=== PATIENT | male | born 1940 | race African-American/Black ===

== ENCOUNTER 2016-08-27 03:06 | Inpatient (IN) | payer MEDICARE ==
[~2016-08-27] VITALS: Ht 188 cm; Wt 60.8 kg
[~2016-08-27 03:06] MED LIST: ASPI-39 PO; FLUT16SP2 NS; HYDR15SO4 PO; LISI10TA2 PO; SILO8CAP PO; SIMV20TA3 PO
[2016-08-27] MEDS ORDERED: OXYMETAZOLINE 0.05% NASAL SPRAY 30ML BOTTLE. NS ONE (03:30)
[2016-08-27] MEDS ORDERED: IV NORMAL SALINE 500ML BAG 500 ML IV ONE ×3 (04:00→06:15)
[2016-08-27 04:21] LABS: BASO % 1 % (0-3); EOS % 0 % (0-3); HEMATOCRIT 44.7 % (39.0-53.0); HEMOGLOBIN 14.8 g/dL (13.0-17.5); LYMPH # 0.9 x10^3/uL (1.0-4.8); LYMPH % 26 % (24-48); MEAN CORPUSCULAR HEMOGLOBIN 32 pg (25-35); MEAN CORPUSCULAR HGB CONC 33 g/dL (31-37); MEAN CORPUSCULAR VOLUME 97 fL (79-100); MONO % 16 % (0-9); NEUT % 56 % (31-73); PLATELET COUNT 86 x10^3/uL (140-400); RED BLOOD COUNT 4.63 x10^6/uL (4.30-5.70); WHITE BLOOD COUNT 3.4 x10^3/uL (4.0-11.0)
[2016-08-27 04:31] LABS: INR 1.1 (0.8-1.1); PROTHROMBIN TIME PATIENT 13.8 SEC (11.7-14.0)
[2016-08-27 04:32] LABS: CREATININE 1.8 mg/dL (0.7-1.3); GFR 44.6; POTASSIUM 4.3 mmol/L (3.5-5.1)
[2016-08-27] MEDS ORDERED: CEPH-264 PO (05:03)
--- NOTE | 2016-08-27 05:04 | PHYS DOC ---
Past Medical History Past Medical History: High Cholesterol, Hypertension, Unknown Additional Past Medical Histor: poor historian Past Surgical History: Other Additional Past Surgical Histo: poor historian Alcohol Use: None Drug Use: None Adult General Chief Complaint Chief Complaint: NOSEBLEED HPI HPI 76-year-old male presenting to the emergency department today with nosebleed and watery stools over the past few days. The nosebleed is in the right near he reports dripping which has been intermittently controlled by pressure. He denies any pain. Onset 2-3 days. Location right Meza. Duration intermittent. No alleviating factors present. (nursing note states left nare, this is incorrect it is right nare). Review of systems is negative for chest pain abdominal pain nausea vomiting. Positive for watery stools. All other review of systems is negative unless otherwise noted in history of present illness. Review of Systems Review of Systems SEE ABOVE. Current Medications Current Medications Current Medications Medications (Trade) Dose Ordered Sig/Lucio Start Time Stop Time Status Last Admin Dose Admin Oxymetazoline HCl 2 spray 2 spray 1X ONCE 08/27/16 03:30 08/27/16 03:31 DC 08/27/16 04:12 2 SPRAY Sodium Chloride (Iv Sodium Chloride 0.9% 500ml Bag) 500 ml @ 500 mls/hr 1X ONCE 08/27/16 05:00 08/27/16 05:59 Allergies Allergies Allergies Coded Allergies Type Severity Reaction Last Updated Verified No Known Drug Allergies 08/10/13 No Physical Exam Physical Exam Constitutional: Well developed, well nourished, no acute distress, non-toxic appearance. HENT: Normocephalic, atraumatic, bilateral external ears normal, oropharynx moist, no oral exudates, the patient's nose has bleeding from the anterior portion of the septum of the right naris. No bleeding from the left naris. Eyes: PERRLA, EOMI, conjunctiva normal, no discharge. Neck: Normal range of motion, no tenderness, supple, no stridor. [] Cardiovascular:Heart rate regular rhythm, no murmur [] Lungs & Thorax: Bilateral breath sounds clear to auscultation Abdomen: Soft nontender abdomen without rebound tenderness or guarding present. Negative McBurneys point. Negative Heart sign. No ecchymosis present. Skin: Warm, dry, no erythema, no rash. Back: No tenderness, no CVA tenderness. [] Extremities: No tenderness, no cyanosis, no clubbing, ROM intact, no edema. [] Neurologic: Alert and oriented X 3, normal motor function, normal sensory function, no focal deficits noted. Psychologic: Affect normal, judgement normal, mood normal. [] Current Patient Data Vital Signs Vital Signs Date Time Temp Pulse Resp B/P Pulse Ox O2 Delivery O2 Flow Rate FiO2 08/27/16 03:06 97.9 89 16 92/60 96 Room Air 97.9 Lab Values Laboratory Tests Test 08/27/16 04:00 White Blood Count 3.4x10^3/uL (4.0-11.0) L Red Blood Count 4.63x10^6/uL (4.30-5.70) Hemoglobin 14.8g/dL (13.0-17.5) Hematocrit 44.7% (39.0-53.0) Mean Corpuscular Volume 97fL (79-100) Mean Corpuscular Hemoglobin 32pg (25-35) Mean Corpuscular Hemoglobin Concent 33g/dL (31-37) Red Cell Distribution Width 13.0% (11.5-14.5) Platelet Count 86x10^3/uL (140-400) L Neutrophils (%) (Auto) 56% (31-73) Lymphocytes (%) (Auto) 26% (24-48) Monocytes (%) (Auto) 16% (0-9) H Eosinophils (%) (Auto) 0% (0-3) Basophils (%) (Auto) 1% (0-3) Neutrophils # (Auto) 1.9x10^3uL (1.8-7.7) Lymphocytes # (Auto) 0.9x10^3/uL (1.0-4.8) L Monocytes # (Auto) 0.6x10^3/uL (0.0-1.1) Eosinophils # (Auto) 0.0x10^3/uL (0.0-0.7) Basophils # (Auto) 0.0x10^3/uL (0.0-0.2) Prothrombin Time 13.8SEC (11.7-14.0) Prothrombin Time INR 1.1 (0.8-1.1) PTT 42SEC (24-38) H Sodium Level 140mmol/L (136-145) Potassium Level 4.3mmol/L (3.5-5.1) Chloride Level 101mmol/L (98-107) Carbon Dioxide Level 25mmol/L (21-32) Anion Gap 14 (6-14) Blood Urea Nitrogen 44mg/dL (8-26) H Creatinine 1.8mg/dL (0.7-1.3) H Estimated GFR (Cockcroft-Gault) 44.6 Glucose Level 120mg/dL (70-99) H Calcium Level 9.0mg/dL (8.5-10.1) Laboratory Tests 08/27/16 04:00 Laboratory Tests 08/27/16 04:00 EKG EKG [] Radiology/Procedures Radiology/Procedures [] Course & Med Decision Making Course & Med Decision Making Pertinent Labs and Imaging studies reviewed. (See chart for details) [] 76-year-old male presenting to the emergency department today with a bloody nose. On examination the patient was hypotensive in the emergency Department without tachycardia. He denies being on a beta crow. He had bleeding from the right Meza. Anterior bleed. Oxymetazoline and Rhino Rocket used which stopped the bleeding. IV fluids administered in the emergency department which improved his blood pressure to approximately 120 systolic. He was able to tolerate oral intake in the emergency department. Blood work showed mild uremia with acute kidney injury likely secondary to dehydration/hypovolemia. Replaced in the emergency department. On reevaluation, the patient felt strongly lightheaded when he stood up. We then decided to admit the patient to our hospitalist team for further evaluation workup and care. Bleeding of the nose had stopped. Admitted for IV fluids and hypovolemia dehydration and orthostasis. Dragon Disclaimer Dragon Disclaimer This electronic medical record was generated, in whole or in part, using a voice recognition dictation system. Departure Departure Impression: Primary Impression: Epistaxis Additional Impressions: Hypotension DANIEL (acute kidney injury) Disposition: 01 HOME, SELF-CARE Condition: IMPROVED Referrals: ALBINO SHORT MD (PCP) IRA CLARK MD Patient Instructions: Dehydration, Adult, Nosebleed Additional Instructions: Thank you for allowing us to participate in your care today. Follow-up with your primary care physician tomorrow morning for repeat kidney function testing. Drink lots of water until then. Return to the emergency department if your unable to keep oral liquids down or if your nose begins bleeding again. Followup with an ENT Dr. Moise in 5 days ([phone]). If you do not have a primary care provider you can ask for a list of our primary care providers. Return to the emergency department you have any new or concerning findings. This should be evaluated by the primary care physician and any necessary consulting services for continued management within a few days after discharge. Return to emergency room if you have any new or concerning symptoms including but not limited to fever, chills, nausea, vomiting, intractable pain, any new rashes, chest pain, shortness of air, uncontrolled bleeding, difficulty breathing, and/or vision loss. Scripts Cephalexin (Keflex)500 Mg Capsule1 Cap PO BID #14 CAP Prov:MADDI PHELPS MD 08/27/16 Problem Qualifiers MADDI PHELPS MD Aug 27, 2016 05:03
[2016-08-27] MEDS ORDERED: MORPHINE SULFATE 2 MG/ML DISP.SYRIN. IV PRN (06:00)
[2016-08-27] MEDS ORDERED: ONDANSETRON PF 4 MG/2 ML VIAL. IV PRN ×2 (06:00→11:25)
--- NOTE | 2016-08-27 11:38 | ACF ---
Admission Forms Criteria EPISTAXIS Clinical Indications for Admission to Inpatient Care ( Place 'X' for any and all applicable criteria): Hospital admission is needed for appropriate care of the patient because of ANY ONE of the following [X]I. Severe epistaxis requiring posterior packing (5)(6) [ ]II. Acute glaucoma unresponsive to emergency treatment that requires IV medication or other treatment beyond the scope observation care (1) [ ]III. Severe eye infection or inflammation (eg, uveitis) requiring IV medication such as IV acyclovir for acute retinal necrosis syndrome (1)(2)(3)(4) [ ]IV. Acute bacterial labyrinthitis(6)(7) [ ]V. Viral labyrinthitis with symptoms uncontrollable on an outpatient or observation care basis (6)(7) [ ]. Severe necrotizing external otitis unresponsive to outpatient and observation care treatment (6) [ ]VII. Otitis media requiring treatment beyond the scope of outpatient and observation care, as indicated by presence or persistence of ANY ONE of the following(6)(8)(9): [ ]a) Mastoiditis [ ]b) Suspected BONE GLUE MAKER infection [ ]c) Bacteremia [ ]d) Hemodynamic instability remaining after emergency or observation level care (as appropriate) [ ]e) Surgical drainage needed that cannot be performed as an outpatient or in an observation setting (10) [ ]VIII. Epiglottitis or supraglottitis(6)(11)(12)(13)(14) [ ]IX. Stridor or laryngospasm (unresponsive to emergency management) (6)(11)( 12)(13)(14) [ ]X. Airway blockage or inability to swallow (6)(12)(19)(20) [ ]XI. Severe sinusitis as indicated by ANY ONE of the following (6)(13)(21) [ ]a) Suspected BONE GLUE MAKER infection [ ]b) Bacteremia [ ]c) Hemodynamic instability remaining after emergency or observation level care (as appropriate) [ ]d) Outpatient and observation care antibiotic treatment have failed or are not considered appropriate [ ]e) Surgical drainage needed that cannot be performed on an outpatient basis or observation setting [ ]f) Suspected orbital involvement [ ]XII. Complicated infections; examples include (6)(13)(21)(22) [ ]a) Abscess or swelling causing airway difficulty(12) [ ]b) Bacteremia [ ]c) Hemodynamic instability remaining after emergency or observation level care (as appropriate) [ ]d) Suspected BONE GLUE MAKER spread [ ]e) Outpatient and observation care antibiotic treatment. have failed or are not considered appropriate [ ]f) Surgical drainage needed that cannot be performed on an outpatient basis or observation setting [ ]g) Other management need that cannot be performed in outpatient or observation setting [ ]XIII. Severe trauma requiring inpatient medical treatment of eye, head, pharynx, or airway (1)(23)(24)(25)(26) [ ]XIV. Acute pharyngitis or tonsillitis and ANY ONE of the following (14)(15)( 16): [ ]a) Hemodynamic instability remaining after emergency or observation level of care (as appropriate) [ ]b) Surgical drainage needed that cannot be performed in outpatient or observation setting [ ]c) Mediastinitis [ ]d) Thrombophlebitis of internal jugular vein (Lemierre syndrome) [ ]XV. Sialoadenitis and ANY ONE of the following (17)(18) [ ]a) Hemodynamic instability remaining after emergency or observation level care (as appropriate) [ ]b) Surgical drainage needed that cannot be performed in outpatient or observation setting [ ]XVI. Ischemic optic neuropathy(11) [ ]XVII.Head or Neck Disease and ALL of the following: [ ]a) Symptom or finding for which emergency and observation care have failed or are not considered appropriate (Also use General Criteria: Observation Care Form as appropriate) [ ]b) Presence of ANY ONE of the following: [ ]i) A General Admission Criteria [ ]ii) A Pediatric General Admission Criteria (Contents from HEAD and NECK DISEASE clinical indications for admission to inpatient care have been integrated in this form) The original [facility] content created by [facility] has been revised. The portions of the content which have been revised are identified through the use of italic text or in bold, and [facility] has neither reviewed nor approved the modified material. All other unmodified content is copyright [facility]. Please see references footnoted in the original [facility] edition 2016 Admission Criteria Met?: Yes ODETTE SINCLAIR Aug 27, 2016 11:38
--- NOTE | 2016-08-27 11:43 | PDOC1 ---
History and Physical Date of Admission Date of Admission DATE: 08/27/16 TIME: 11:36 Identification/Chief Complaint Chief Complaint bleeding from nose x 3 days Diarrhea x 3 days Source Source: Caregiver, Chart review, Patient History of Present Illness History of Present Illness 76 y./o AA male who has been having watery stools x 3 days now, no fevers, no emesis, associated with abd cramps, also significant epistaxis R nostril, denies manipulation, on ASA 81 at home (PCP Dr. Duron). came to ER, platelets 80s,. hypotensive, DANIEL crea 1.7, hence admitted. BP better with IV resuscitation , but epistaxis still continues, He has a nasal drain/balloon in the R nostril. 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 I will pursue workup/further eval of this thrombocytopenia that has caused 2 issues now that required hospitalization Dw RN at bedside and pt His only past emdical is HTN and dyslipidemia, lives at home with . Past Medical History Cardiovascular: HTN, Hyperlipidemia GI: No pertinent hx Heme/Onc: No pertinent hx Renal/: Benign prostatic enlarg. Past Surgical History Past Surgical History: Other (left buttock skin cancer removal 05/2016 with post op bleeding) Family History Family History: No Significant Social History Smoke: No ALCOHOL: none Drugs: None Current Problem List Problem List Problems Medical Problems: (1) Acute kidney injury Status: Acute (2) DANIEL (acute kidney injury) Status: Acute (3) Epistaxis Status: Acute (4) Hypotension Status: Acute (5) Hypotension Status: Acute Problems: Current Medications Current Medications Current Medications Oxymetazoline HCl 2 spray 2 spray 1X ONCE NS Last administered on 08/27/16 04 :12; Start 08/27/16 at 03:30; Stop 08/27/16 at 03:31; Status DC Sodium Chloride 500 ml @ 500 mls/hr 1X ONCE IV Last administered on 04:12; Start 08/27/16 at 04:00; Stop 08/27/16 at 04:59; Status DC Sodium Chloride 500 ml @ 500 mls/hr 1X ONCE IV Last administered on 05:00; Start 08/27/16 at 05:00; Stop 08/27/16 at 05:59; Status DC Sodium Chloride (Iv Sodium Chloride 0.9% 500ml Bag) 500 ml @ 500 mls/hr 1X ONCE IV Last administered on 08/27/16t 06:04; Start 08/27/16 at 06:15; Stop at 07:14; Status DC Ondansetron HCl (Zofran) 4 mg PRN Q8HRS PRN IV NAUSEA/VOMITING; Start 08/27/16 at 06:00; Stop 08/27/16 at 11:26; Status DC Morphine Sulfate 2 mg PRN Q2HR PRN IV SEVERE PAIN; Start 08/27/16 at 06:00; Stop 08/28/16 at 05:59 Ondansetron HCl (Zofran) 4 mg PRN Q6HRS PRN IV NAUSEA/VOMITING; Start 08/27/16 at 11:25 Aspirin (Children'S Aspirin) 81 mg DAILYWBKFT PO ; Start 08/27/16 at 12:00 Fluticasone Propionate (Flonase) 2 spray DAILY NS ; Start 08/27/16 at 12:00 Acetaminophen/ Hydrocodone Bitart (Lortab 7.5-325/ 15ml Oral Solution) 15 ml TID PRN PO pain; Start 08/27/16 at 11:30 Simvastatin (Zocor) 20 mg HS PO ; Start 08/27/16 at 21:00 Active Scripts Active Keflex (Cephalexin) 500 Mg Capsule 1 Cap PO BID Reported Flonase (Fluticasone Propionate) 16 Gm [place].susp 2 [place] NS DAILY Simvastatin 20 Mg Tablet 20 Mg PO HS Hermelinda Chewable (Aspirin) 81 Mg Tab.chew 81 Mg PO Lisinopril 10 Mg Tablet 10 Mg PO Hydrocodone-Apap 7.5-325/15 Soln (Hydrocodone Bit/Acetaminophen) 15 Ml Solution 15 Ml PO Rapaflo (Silodosin) 8 Mg Capsule 8 Mg PO Allergies Allergies: Coded Allergies: No Known Drug Allergies (Unverified , 08/10/13) ROS Review of System cant be obtained much, limited - preoccupied with the epistaxis Physical Exam General: Other (bleeding nose with R drain in R nostril) HEENT: PERRLA, EOMI, Mucous membr. moist/pink Lungs: Clear to auscultation, Normal air movement Heart: S1S2, RRR, no thrills, no rubs, no gallops Cardiovascular: S1 Breasts: Normal, Rt breast nml w/o mass, Lt breast nml w/o mass, Nipples normal Abdomen: Normal bowel sounds, Soft, No tenderness, No hepatosplenomegaly, No masses Male Genitals Exam: normal genitalia, normal prostate Rectal Exam: not examined PELVIC: Nml ext genitalia Extremities: No clubbing, No cyanosis, No edema, Normal pulses, No tenderness/ swelling Skin: No rashes, No breakdown, No significant lesion Neuro: Normal gait, Normal speech, Strength at 5/5 X4 ext, Normal tone, Sensation intact, Cranial nerves 3-12 NL, Reflexes 2+ Psych/Mental Status: Mental status NL, Mood NL Vitals Vitals Vital Signs Date Time Temp Pulse Resp B/P Pulse Ox O2 Delivery O2 Flow Rate FiO2 08/27/16 11:00 65 14 135/72 95 Room Air 08/27/16 03:06 97.9 97.9 Labs Labs Laboratory Tests Test 08/27/16 04:00 White Blood Count 3.4x10^3/uL (4.0-11.0) Red Blood Count 4.63x10^6/uL (4.30-5.70) Hemoglobin 14.8g/dL (13.0-17.5) Hematocrit 44.7% (39.0-53.0) Mean Corpuscular Volume 97fL (79-100) Mean Corpuscular Hemoglobin 32pg (25-35) Mean Corpuscular Hemoglobin Concent 33g/dL (31-37) Red Cell Distribution Width 13.0% (11.5-14.5) Platelet Count 86x10^3/uL (140-400) Neutrophils (%) (Auto) 56% (31-73) Lymphocytes (%) (Auto) 26% (24-48) Monocytes (%) (Auto) 16% (0-9) Eosinophils (%) (Auto) 0% (0-3) Basophils (%) (Auto) 1% (0-3) Neutrophils # (Auto) 1.9x10^3uL (1.8-7.7) Lymphocytes # (Auto) 0.9x10^3/uL (1.0-4.8) Monocytes # (Auto) 0.6x10^3/uL (0.0-1.1) Eosinophils # (Auto) 0.0x10^3/uL (0.0-0.7) Basophils # (Auto) 0.0x10^3/uL (0.0-0.2) Prothrombin Time 13.8SEC (11.7-14.0) Prothromb Time International Ratio 1.1 (0.8-1.1) Activated Partial Thromboplast Time 42SEC (24-38) Sodium Level 140mmol/L (136-145) Potassium Level 4.3mmol/L (3.5-5.1) Chloride Level 101mmol/L (98-107) Carbon Dioxide Level 25mmol/L (21-32) Anion Gap 14 (6-14) Blood Urea Nitrogen 44mg/dL (8-26) Creatinine 1.8mg/dL (0.7-1.3) Estimated GFR (Cockcroft-Gault) 44.6 Glucose Level 120mg/dL (70-99) Calcium Level 9.0mg/dL (8.5-10.1) Laboratory Tests Test 08/27/16 04:00 White Blood Count 3.4x10^3/uL (4.0-11.0) Red Blood Count 4.63x10^6/uL (4.30-5.70) Hemoglobin 14.8g/dL (13.0-17.5) Hematocrit 44.7% (39.0-53.0) Mean Corpuscular Volume 97fL (79-100) Mean Corpuscular Hemoglobin 32pg (25-35) Mean Corpuscular Hemoglobin Concent 33g/dL (31-37) Red Cell Distribution Width 13.0% (11.5-14.5) Platelet Count 86x10^3/uL (140-400) Neutrophils (%) (Auto) 56% (31-73) Lymphocytes (%) (Auto) 26% (24-48) Monocytes (%) (Auto) 16% (0-9) Eosinophils (%) (Auto) 0% (0-3) Basophils (%) (Auto) 1% (0-3) Neutrophils # (Auto) 1.9x10^3uL (1.8-7.7) Lymphocytes # (Auto) 0.9x10^3/uL (1.0-4.8) Monocytes # (Auto) 0.6x10^3/uL (0.0-1.1) Eosinophils # (Auto) 0.0x10^3/uL (0.0-0.7) Basophils # (Auto) 0.0x10^3/uL (0.0-0.2) Prothrombin Time 13.8SEC (11.7-14.0) Prothromb Time International Ratio 1.1 (0.8-1.1) Activated Partial Thromboplast Time 42SEC (24-38) Sodium Level 140mmol/L (136-145) Potassium Level 4.3mmol/L (3.5-5.1) Chloride Level 101mmol/L (98-107) Carbon Dioxide Level 25mmol/L (21-32) Anion Gap 14 (6-14) Blood Urea Nitrogen 44mg/dL (8-26) Creatinine 1.8mg/dL (0.7-1.3) Estimated GFR (Cockcroft-Gault) 44.6 Glucose Level 120mg/dL (70-99) Calcium Level 9.0mg/dL (8.5-10.1) VTE Prophylaxis Ordered VTE Prophylaxis Devices: Contraindicated VTE Pharmacological Prophylaxi: Contraindicated Assessment/Plan Assessment/Plan 1. Severe significant thrombocytopenia with active bleeding - NEW 2. EPISTAxis with indwelling R nostril drain placed by ER 3. Hx post op bleeding in left buttock from skin cancer local excision 4. DANIEL sec to GI loss 5.A cute diarrhea likely viral 6. HYPOTENSION fluid responsive PLAN: cont IVF for now STOP ASA Consult heme onc PT/OT Hold bP meds ok to cont statin Check stool studies MOnitor for further hypotension Keep tele 2 mN Dw RN at bedside GABRIELA THORNTON MD Aug 27, 2016 11:43
[2016-08-27 11:49] VITALS: BP 119/90
[2016-08-27] MEDS: ASPIRIN 81 MG TAB.CHEW PO SCH (12:00)
[2016-08-27] MEDS: FLUTICASONE 50MCG/NASAL SPRAY 16GM BOTTLE. NS SCH (12:00)
[2016-08-27] MEDS: IV NORMAL SALINE 1000ML BAG 1,000 ML IV SCH (12:08)
--- NOTE | 2016-08-27 14:07 | PDOC ---
Provider Note Provider Note Onc consult dictated- [id number] Thrombocytopenia- Lab eval and U/S ordered. Epistaxis- Counts are high enough it is more likely due to local factors. No other sx of bleeding. JEFFRY ELKINS DO Aug 27, 2016 14:07
[2016-08-27 14:44] VITALS: BP 115/86
[2016-08-27 15:20] LABS: % SAT IRON 16 % (15-34); IRON,SERUM 43 ug/dL (65-175)
[2016-08-27] MEDS: HYDROCODONE/APAP 7.5/325MG ORAL 15 ML SOLUTION. PO PRN ×2 (18:10→19:10)
[2016-08-27 19:00] VITALS: BP 124/78
[2016-08-27] MEDS: SIMVASTATIN 20 MG TABLET PO SCH (22:20)
[2016-08-27 23:00] VITALS: BP 122/76
--- NOTE | 2016-08-28 02:20 | CONS ---
DATE OF CONSULTATION: 08/27/2016 REFERRING PROVIDER: Dr. Mcallister. REASON FOR CONSULTATION: Thrombocytopenia. HISTORY OF PRESENT ILLNESS: The patient is a 76-year-old -[place] male who presented to the hospital today with a 3-day history of watery diarrhea. He was found to have acute kidney insufficiency with a creatinine of 1.8. He was also hypotensive. Per chart review, he recently has had some epistaxis status post a nasal bulb placement 3 days ago, now his other nostril has some slight oozing of blood. He denies any melena, hematochezia, hematuria, or easy bruising. He had a skin cancer resection completed on his buttock in May 2016 and it did have some oozing after that procedure, but per chart review, it sounds like it was not profoundly excessive. He was discharged quickly after the procedure. He states that he did have some sort of stents placed recently, but cannot tell me the details of this. He did state that he did not have bleeding following that procedure. He has not had any fevers or chills. He is typically only on aspirin 81 mg daily. PAST MEDICAL HISTORY: Hypertension, hyperlipidemia. PAST SURGICAL HISTORY: Abdominal aortic stent. FAMILY HISTORY: Unknown to patient. SOCIAL HISTORY: Smokes and unclear amount for an unknown length of time, patient cannot recall any numbers currently. CURRENT MEDICATIONS: Lortab, aspirin, Flonase, morphine, Zofran, Zocor. REVIEW OF SYSTEMS: Ten-point review of systems attempted and unremarkable with the exception of that mentioned in the HPI. PHYSICAL EXAMINATION: VITAL SIGNS: Temperature 98.1, pulse 81, respiratory rate 20, blood pressure 119/90, 97% O2 on room air. GENERAL: He is alert and oriented. He is fatigued but does not appear to be in any distress. HEENT: Extraocular muscle strength is intact. Mucous membranes are moist. No scleral icterus. No oral petechiae. CARDIOVASCULAR: Heart is regular in rhythm and rate. LUNGS: Clear to auscultation bilaterally. ABDOMEN: Soft, nontender. No obvious organomegaly. EXTREMITIES: No edema. SKIN: No excessive bruising. NEUROLOGIC: No focal deficits. IMAGING/LABORATORY DATA: In May 2016, his platelet count was 117, WBC and hemoglobin were normal. This admission, his hemoglobin remains normal, WBC 3.4 with mildly low absolute lymphocyte count at 0.9, and platelets 86. Review of the CTA of the abdomen and pelvis reveals that he apparently has an infrarenal and abdominal aortic stent. The liver does have some hypodensities, which are apparently are too small to definitively characterize. Spleen was normal in appearance. ASSESSMENT AND PLAN: The patient is a 76-year-old male with the following medical problems: 1. Chronic progressive Thrombocytopenia, new mild leukopenia. I have added on a lab evaluation for these cytopenias and abdominal ultrasound. Although it appears the spleen was normal on the CTA, there are some hypodensities of unclear etiology in the liver, which perhaps will be further evaluated on an ultrasound, which I also ordered 2. Epistaxis from the nostril. I believe this is likely due to local factors. He apparently was able to have an abdominal aortic graft at some point without bleeding complications. His platelet count is high enough that he should not have bleeding from quantitative factors. Generally, qualitative platelet defects are diagnosed at a much younger age. I will check fibrinogen, but his coagulation factors are intact as well. His coagulation tests are normal so there does not appear to be any clotting factor defects. He has no bleeding from anywhere else. Thank you for this consultation and allowing me to participate in his care. JEFFRY ELKINS DO DR: LUIS ARMANDO/alverto JOB#: [id number] / [id number] MELLY
[2016-08-28 03:00] VITALS: BP 120/72
[2016-08-28] MEDS: IV NORMAL SALINE 1000ML BAG 1,000 ML IV SCH ×2 (03:41→14:21)
[2016-08-28 04:40] LABS: BILIRUBIN,URINE NEGATIVE (NEG); GLUCOSE,URINE NEGATIVE (NEG); NITRITE,URINE NEGATIVE (NEG); PH,URINE 5.5; PROTEIN,URINE NEGATIVE (NEG-TRACE); UROBILINOGEN,URINE 0.2 mg/dL (0.2 mg/dL)
[2016-08-28 04:57] LABS: BASO % 0 % (0-3); EOS % 0 % (0-3); HEMATOCRIT 39.2 % (39.0-53.0); HEMOGLOBIN 13.2 g/dL (13.0-17.5); LYMPH # 0.9 x10^3/uL (1.0-4.8); LYMPH % 17 % (24-48); MEAN CORPUSCULAR HEMOGLOBIN 32 pg (25-35); MEAN CORPUSCULAR HGB CONC 34 g/dL (31-37); MEAN CORPUSCULAR VOLUME 95 fL (79-100); MONO % 11 % (0-9); NEUT % 72 % (31-73); PLATELET COUNT 75 x10^3/uL (140-400); RED BLOOD COUNT 4.14 x10^6/uL (4.30-5.70); WHITE BLOOD COUNT 5.5 x10^3/uL (4.0-11.0)
[2016-08-28 05:12] LABS: BACTERIA,URINE FEW /HPF (0-FEW); RBC,URINE OCC /HPF (0-2); SQUAMOUS EPITHELIAL CELL,UR OCC /LPF
[2016-08-28 06:06] LABS: CALCIUM 8.2 mg/dL (8.5-10.1); CREATININE 0.9 mg/dL (0.7-1.3); GFR 99.3
[2016-08-28 06:17] LABS: FOLIC ACID 12.5 ng/mL (>3.0)
[2016-08-28 07:09] VITALS: BP 121/76
--- NOTE | 2016-08-28 07:25 | RAD ---
CT of the head without contrast, 08/27/2016: History: Sinus and head pressure The patient's head is somewhat rotated. There is moderate cerebral atrophy. There are mild patchy lucencies in the deep white matter bilaterally compatible with chronic ischemic change. The ventricles are within normal limits in size. There is no shift of the midline structures. There is no evidence of acute intracranial hemorrhage or mass effect. There is calcific plaquing of the distal internal carotid and vertebral arteries. Air-fluid levels are present in both maxillary sinuses, incompletely delineated on these images. There is mild mucosal thickening in the ethmoid sinuses. IMPRESSION: 1. Mild bilateral deep white matter lucencies compatible with chronic ischemic change. 2. Cerebral atrophy. 3. Acute bilateral maxillary sinusitis. PQRS Compliance Statement: One or more of the following individualized dose reduction techniques were utilized for this examination: 1. Automated exposure control 2. Adjustment of the mA and/or kV according to patient size 3. Use of iterative reconstruction technique
[2016-08-28] MEDS: ASPIRIN 81 MG TAB.CHEW PO SCH (08:00)
--- NOTE | 2016-08-28 08:08 | RAD ---
Abdominal ultrasound, 08/27/2016: History: Thrombocytopenia The gallbladder is within normal limits in size. There is no sonographic evidence of cholelithiasis. The gallbladder angeles are not thickened. No bile duct dilatation is seen. The visualized portions of the liver are unremarkable. The pancreas was obscured by overlying bowel. The spleen is of normal size. The kidneys show no evidence of obstruction or mass. The mid and distal abdominal aorta was obscured by overlying bowel. The patient's known abdominal aortic aneurysm was not visualized. Limited views of the inferior vena cava show no abnormality. No free fluid is evident in the abdomen. IMPRESSION: 1. No acute abnormality is detected. 2. The pancreas and central retroperitoneum including the majority of the abdominal aorta were obscured by overlying bowel.
[2016-08-28] MEDS: HYDROCODONE/APAP 7.5/325MG ORAL 15 ML SOLUTION. PO PRN (08:42)
[2016-08-28] MEDS: FLUTICASONE 50MCG/NASAL SPRAY 16GM BOTTLE. NS SCH (08:43)
--- NOTE | 2016-08-28 09:00 | PDOC ---
Subjective: Subjective: Onc f/u- Thrombocytopenia, epistaxis Pt with no change, very fatigued. Epistaxis from nose, no melena, hematochezia, hematuria, mucosal bleeding, bruising anywhere else. Objective: Vital Signs: Vital Signs Date Time Temp Pulse Resp B/P Pulse Ox O2 Delivery O2 Flow Rate FiO2 08/28/16 08:42 Room Air 08/28/16 07:09 99.0 78 20 121/76 92 99.0 Physical Exam: Heart: Regular rate Extremities: No edema General: Alert, Oriented X3, Cooperative, No acute distress HEENT: Other (nasal bulb in place, dried blood on nostrils.) Lungs: Normal air movement Psych/Mental Status: Mental status NL, Mood NL Skin: Other (no bruising) Labs/Imaging: plt stable TSH low B12, hepatitis panel, ft4 pending Folate WNL Abd U/S neg Assessment/Plan A/P: 1. Thrombocytopenia, likely ITP - Hepatitis panel pending - Other labs, abd U/S WNL - Not low enough to cause clinical bleeding - Qualitative defects generally diagnosed much younger, coags WNL, no signs of bleeding anywhere else - Given pt's overall borderline health and unclear history, will order bmbx to make sure no other underlying heme d/o. - Generally no steroids needed until plt < 30, currently near 80. Will need outpt f/u to ensure stability (110 in 05/23), could need tx in future. 2. Epistaxis - Seems to only have localized bleeding likely due to local factors, not plt count - ENT eval recommended. JEFFRY ELKINS DO Aug 28, 2016 09:00
[2016-08-28 10:38] VITALS: BP 97/68
[2016-08-28 11:22] LABS: HEP A IGM ABDY Negative (Negative)
--- NOTE | 2016-08-28 12:48 | PDOC ---
PROGRESS NOTES Chief Complaint Chief Complaint 1. 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 EPISTAxis with indwelling R nostril drain placed by ER 3. Hx post op bleeding in left buttock from skin cancer local excision 4. DANIEL sec to GI loss 5.A cute diarrhea likely viral 6. HYPOTENSION fluid responsive History of Present Illness History of Present Illness BP better NO more epistaxis today - just dried blood R nostril balloon drain in place PLatelets 75 from 80s Heme onc note reviewed PLAN: Bone marrow biopsy NO blood thinners Watch out for further hypotension, IVF boluses prn Vitals Vitals Vital Signs Date Time Temp Pulse Resp B/P Pulse Ox O2 Delivery O2 Flow Rate FiO2 08/28/16 10:38 99.8 82 18 97/68 93 Room Air 99.8 Physical Exam General: Alert, Oriented X3, Cooperative, No acute distress Heart: Regular rate Abdomen: Normal bowel sounds, Soft, No tenderness, No hepatosplenomegaly, No masses Extremities: No edema Skin: Other (no bruising) Labs LABS Laboratory Tests Test 08/27/16 14:25 08/28/16 00:02 08/28/16 04:35 Fibrinogen 309mg/dL (200-440) Special Test - Miscellaneous See separate report Iron Level 43ug/dL (65-175) Total Iron Binding Capacity 277ug/dL (250-450) Iron Saturation 16% (15-34) Ferritin 433ng/mL (26-388) Folic Acid (LAB) 12.5ng/mL (>3.0) Thyroid Stimulating Hormone (TSH) 0.173uIU/mL (0.358-3.74) Hepatitis A IgM Antibody Negative (Negative) Hepatitis B Surface Antigen Negative (Negative) Hepatitis B Core IgM Antibody Negative (Negative) Hepatitis C Antibody <0.1s/co ratio (0.0-0.9) Urine Collection Type Unknown Urine Color Yellow Urine Clarity Clear Urine pH 5.5 Urine Specific [place] >=1.030 Urine Protein Negativemg/dL (NEG-TRACE) Urine Glucose (UA) Negativemg/dL (NEG) Urine Ketones (Stick) Negativemg/dL (NEG) Urine Blood Small (NEG) Urine Nitrite Negative (NEG) Urine Bilirubin Negative (NEG) Urine Urobilinogen Dipstick 0.2mg/dL (0.2 mg/dL) Urine Leukocyte Esterase Negative (NEG) Urine RBC Occ/HPF (0-2) Urine WBC 1-4/HPF (0-4) Urine Squamous Epithelial Cells Occ/LPF Urine Bacteria Few/HPF (0-FEW) Urine Hyaline Casts Few/HPF Urine Mucus Mod/LPF White Blood Count 5.5x10^3/uL (4.0-11.0) Red Blood Count 4.14x10^6/uL (4.30-5.70) Hemoglobin 13.2g/dL (13.0-17.5) Hematocrit 39.2% (39.0-53.0) Mean Corpuscular Volume 95fL (79-100) Mean Corpuscular Hemoglobin 32pg (25-35) Mean Corpuscular Hemoglobin Concent 34g/dL (31-37) Red Cell Distribution Width 13.0% (11.5-14.5) Platelet Count 75x10^3/uL (140-400) Neutrophils (%) (Auto) 72% (31-73) Lymphocytes (%) (Auto) 17% (24-48) Monocytes (%) (Auto) 11% (0-9) Eosinophils (%) (Auto) 0% (0-3) Basophils (%) (Auto) 0% (0-3) Neutrophils # (Auto) 3.9x10^3uL (1.8-7.7) Lymphocytes # (Auto) 0.9x10^3/uL (1.0-4.8) Monocytes # (Auto) 0.6x10^3/uL (0.0-1.1) Eosinophils # (Auto) 0.0x10^3/uL (0.0-0.7) Basophils # (Auto) 0.0x10^3/uL (0.0-0.2) Sodium Level 140mmol/L (136-145) Potassium Level 4.0mmol/L (3.5-5.1) Chloride Level 105mmol/L (98-107) Carbon Dioxide Level 22mmol/L (21-32) Anion Gap 13 (6-14) Blood Urea Nitrogen 29mg/dL (8-26) Creatinine 0.9mg/dL (0.7-1.3) Estimated GFR (Cockcroft-Gault) 99.3 Glucose Level 109mg/dL (70-99) Calcium Level 8.2mg/dL (8.5-10.1) Free Thyroxine 1.07ng/dL (0.76-1.46) Review of Systems Review of Systems epistaxis, skin bruising, no abd pain Assessment and Plan Assessmemt and Plan Problems Medical Problems: (1) Acute kidney injury Status: Acute (2) DANIEL (acute kidney injury) Status: Acute (3) Epistaxis Status: Acute (4) Hypotension Status: Acute (5) Hypotension Status: Acute Problems: Comment Review of Relevant I have reviewed the following items marian (where applicable) has been applied. Labs Laboratory Tests Test 08/27/16 04:00 08/27/16 14:25 08/28/16 00:02 08/28/16 04:35 White Blood Count 3.4x10^3/uL (4.0-11.0) 5.5x10^3/uL (4.0-11.0) Red Blood Count 4.63x10^6/uL (4.30-5.70) 4.14x10^6/uL (4.30-5.70) Hemoglobin 14.8g/dL (13.0-17.5) 13.2g/dL (13.0-17.5) Hematocrit 44.7% (39.0-53.0) 39.2% (39.0-53.0) Mean Corpuscular Volume 97fL (79-100) 95fL (79-100) Mean Corpuscular Hemoglobin 32pg (25-35) 32pg (25-35) Mean Corpuscular Hemoglobin Concent 33g/dL (31-37) 34g/dL (31-37) Red Cell Distribution Width 13.0% (11.5-14.5) 13.0% (11.5-14.5) Platelet Count 86x10^3/uL (140-400) 75x10^3/uL (140-400) Neutrophils (%) (Auto) 56% (31-73) 72% (31-73) Lymphocytes (%) (Auto) 26% (24-48) 17% (24-48) Monocytes (%) (Auto) 16% (0-9) 11% (0-9) Eosinophils (%) (Auto) 0% (0-3) 0% (0-3) Basophils (%) (Auto) 1% (0-3) 0% (0-3) Neutrophils # (Auto) 1.9x10^3uL (1.8-7.7) 3.9x10^3uL (1.8-7.7) Lymphocytes # (Auto) 0.9x10^3/uL (1.0-4.8) 0.9x10^3/uL (1.0-4.8) Monocytes # (Auto) 0.6x10^3/uL (0.0-1.1) 0.6x10^3/uL (0.0-1.1) Eosinophils # (Auto) 0.0x10^3/uL (0.0-0.7) 0.0x10^3/uL (0.0-0.7) Basophils # (Auto) 0.0x10^3/uL (0.0-0.2) 0.0x10^3/uL (0.0-0.2) Prothrombin Time 13.8SEC (11.7-14.0) Prothromb Time International Ratio 1.1 (0.8-1.1) Activated Partial Thromboplast Time 42SEC (24-38) Sodium Level 140mmol/L (136-145) 140mmol/L (136-145) Potassium Level 4.3mmol/L (3.5-5.1) 4.0mmol/L (3.5-5.1) Chloride Level 101mmol/L (98-107) 105mmol/L (98-107) Carbon Dioxide Level 25mmol/L (21-32) 22mmol/L (21-32) Anion Gap 14 (6-14) 13 (6-14) Blood Urea Nitrogen 44mg/dL (8-26) 29mg/dL (8-26) Creatinine 1.8mg/dL (0.7-1.3) 0.9mg/dL (0.7-1.3) Estimated GFR (Cockcroft-Gault) 44.6 99.3 Glucose Level 120mg/dL (70-99) 109mg/dL (70-99) Calcium Level 9.0mg/dL (8.5-10.1) 8.2mg/dL (8.5-10.1) Fibrinogen 309mg/dL (200-440) Special Test - Miscellaneous See separate report Iron Level 43ug/dL (65-175) Total Iron Binding Capacity 277ug/dL (250-450) Iron Saturation 16% (15-34) Ferritin 433ng/mL (26-388) Folic Acid (LAB) 12.5ng/mL (>3.0) Thyroid Stimulating Hormone (TSH) 0.173uIU/mL (0.358-3.74) Hepatitis A IgM Antibody Negative (Negative) Hepatitis B Surface Antigen Negative (Negative) Hepatitis B Core IgM Antibody Negative (Negative) Hepatitis C Antibody <0.1s/co ratio (0.0-0.9) Urine Collection Type Unknown Urine Color Yellow Urine Clarity Clear Urine pH 5.5 Urine Specific [place] >=1.030 Urine Protein Negativemg/dL (NEG-TRACE) Urine Glucose (UA) Negativemg/dL (NEG) Urine Ketones (Stick) Negativemg/dL (NEG) Urine Blood Small (NEG) Urine Nitrite Negative (NEG) Urine Bilirubin Negative (NEG) Urine Urobilinogen Dipstick 0.2mg/dL (0.2 mg/dL) Urine Leukocyte Esterase Negative (NEG) Urine RBC Occ/HPF (0-2) Urine WBC 1-4/HPF (0-4) Urine Squamous Epithelial Cells Occ/LPF Urine Bacteria Few/HPF (0-FEW) Urine Hyaline Casts Few/HPF Urine Mucus Mod/LPF Free Thyroxine 1.07ng/dL (0.76-1.46) Laboratory Tests Test 08/27/16 14:25 08/28/16 00:02 08/28/16 04:35 Fibrinogen 309mg/dL (200-440) Special Test - Miscellaneous See separate report Iron Level 43ug/dL (65-175) Total Iron Binding Capacity 277ug/dL (250-450) Iron Saturation 16% (15-34) Ferritin 433ng/mL (26-388) Folic Acid (LAB) 12.5ng/mL (>3.0) Thyroid Stimulating Hormone (TSH) 0.173uIU/mL (0.358-3.74) Hepatitis A IgM Antibody Negative (Negative) Hepatitis B Surface Antigen Negative (Negative) Hepatitis B Core IgM Antibody Negative (Negative) Hepatitis C Antibody <0.1s/co ratio (0.0-0.9) Urine Collection Type Unknown Urine Color Yellow Urine Clarity Clear Urine pH 5.5 Urine Specific [place] >=1.030 Urine Protein Negativemg/dL (NEG-TRACE) Urine Glucose (UA) Negativemg/dL (NEG) Urine Ketones (Stick) Negativemg/dL (NEG) Urine Blood Small (NEG) Urine Nitrite Negative (NEG) Urine Bilirubin Negative (NEG) Urine Urobilinogen Dipstick 0.2mg/dL (0.2 mg/dL) Urine Leukocyte Esterase Negative (NEG) Urine RBC Occ/HPF (0-2) Urine WBC 1-4/HPF (0-4) Urine Squamous Epithelial Cells Occ/LPF Urine Bacteria Few/HPF (0-FEW) Urine Hyaline Casts Few/HPF Urine Mucus Mod/LPF White Blood Count 5.5x10^3/uL (4.0-11.0) Red Blood Count 4.14x10^6/uL (4.30-5.70) Hemoglobin 13.2g/dL (13.0-17.5) Hematocrit 39.2% (39.0-53.0) Mean Corpuscular Volume 95fL (79-100) Mean Corpuscular Hemoglobin 32pg (25-35) Mean Corpuscular Hemoglobin Concent 34g/dL (31-37) Red Cell Distribution Width 13.0% (11.5-14.5) Platelet Count 75x10^3/uL (140-400) Neutrophils (%) (Auto) 72% (31-73) Lymphocytes (%) (Auto) 17% (24-48) Monocytes (%) (Auto) 11% (0-9) Eosinophils (%) (Auto) 0% (0-3) Basophils (%) (Auto) 0% (0-3) Neutrophils # (Auto) 3.9x10^3uL (1.8-7.7) Lymphocytes # (Auto) 0.9x10^3/uL (1.0-4.8) Monocytes # (Auto) 0.6x10^3/uL (0.0-1.1) Eosinophils # (Auto) 0.0x10^3/uL (0.0-0.7) Basophils # (Auto) 0.0x10^3/uL (0.0-0.2) Sodium Level 140mmol/L (136-145) Potassium Level 4.0mmol/L (3.5-5.1) Chloride Level 105mmol/L (98-107) Carbon Dioxide Level 22mmol/L (21-32) Anion Gap 13 (6-14) Blood Urea Nitrogen 29mg/dL (8-26) Creatinine 0.9mg/dL (0.7-1.3) Estimated GFR (Cockcroft-Gault) 99.3 Glucose Level 109mg/dL (70-99) Calcium Level 8.2mg/dL (8.5-10.1) Free Thyroxine 1.07ng/dL (0.76-1.46) Medications Current Medications Oxymetazoline HCl 2 spray 2 spray 1X ONCE NS Last administered on 08/27/16 04 :12; Start 08/27/16 at 03:30; Stop 08/27/16 at 03:31; Status DC Sodium Chloride 500 ml @ 500 mls/hr 1X ONCE IV Last administered on 04:12; Start 08/27/16 at 04:00; Stop 08/27/16 at 04:59; Status DC Sodium Chloride 500 ml @ 500 mls/hr 1X ONCE IV Last administered on 05:00; Start 08/27/16 at 05:00; Stop 08/27/16 at 05:59; Status DC Sodium Chloride (Iv Sodium Chloride 0.9% 500ml Bag) 500 ml @ 500 mls/hr 1X ONCE IV Last administered on 08/27/16 06:04; Start 08/27/16 at 06:15; Stop at 07:14; Status DC Ondansetron HCl (Zofran) 4 mg PRN Q8HRS PRN IV NAUSEA/VOMITING; Start 08/27/16 at 06:00; Stop 08/27/16 at 11:26; Status DC Morphine Sulfate 2 mg PRN Q2HR PRN IV SEVERE PAIN; Start 08/27/16 at 06:00; Stop 08/28/16 at 05:59; Status DC Ondansetron HCl (Zofran) 4 mg PRN Q6HRS PRN IV NAUSEA/VOMITING; Start 08/27/16 at 11:25 Aspirin (Children'S Aspirin) 81 mg DAILYWBKFT PO ; Start 08/27/16 at 12:00 Fluticasone Propionate (Flonase) 2 spray DAILY NS Last administered on 08:43; Start 08/27/16 at 12:00 Acetaminophen/ Hydrocodone Bitart (Lortab 7.5-325/ 15ml Oral Solution) 15 ml TID PRN PO pain Last administered on 08/28/16 08:42; Start 08/27/16 at 11:30 Simvastatin 20 mg 20 mg HS PO Last administered on 08/27/16 22:20; Start 08/27 at 21:00 Sodium Chloride (Iv Sodium Chloride 0.9% 1000ml Bag) 1,000 ml @ 75 mls/hr [id number] IV Last administered on 08/28/16 03:41; Start 08/27/16 at 11:30 Active Scripts Active Keflex (Cephalexin) 500 Mg Capsule 1 Cap PO BID Reported Flonase (Fluticasone Propionate) 16 Gm [place].susp 2 [place] NS DAILY Simvastatin 20 Mg Tablet 20 Mg PO HS Hermelinda Chewable (Aspirin) 81 Mg Tab.chew 81 Mg PO Lisinopril 10 Mg Tablet 10 Mg PO Hydrocodone-Apap 7.5-325/15 Soln (Hydrocodone Bit/Acetaminophen) 15 Ml Solution 15 Ml PO Rapaflo (Silodosin) 8 Mg Capsule 8 Mg PO Vitals/I & O Vital Sign - Last 24 Hours 08/27/16 08/27/16 08/27/16 08/27/16 14:44 18:10 19:00 19:10 Temp 98.0 99.4 98.0 99.4 Pulse 87 75 Resp 18 18 B/P 115/86 124/78 Pulse Ox 96 96 96 O2 Delivery Room Air Room Air Room Air 08/27/16 08/27/16 08/27/16 08/28/16 19:10 20:00 23:00 03:00 Temp 99.9 99.6 99.9 99.6 Pulse 80 85 Resp 20 18 B/P 122/76 120/72 Pulse Ox 96 95 93 O2 Delivery Room Air 08/28/16 08/28/16 08/28/16 08/28/16 07:09 08:00 08:42 09:49 Temp 99.0 99.0 Pulse 78 Resp 20 B/P 121/76 Pulse Ox 92 O2 Delivery Room Air Room Air Room Air Room Air 08/28/16 10:38 Temp 99.8 99.8 Pulse 82 Resp 18 B/P 97/68 Pulse Ox 93 O2 Delivery Room Air Intake and Output 08/27/16 08/27/16 08/28/16 15:00 23:00 07:00 Intake Total 120 ml 1240 ml Output Total 400 ml 500 ml Balance -400 ml 120 ml 740 ml GABRIELA THORNTON MD Aug 28, 2016 12:48
[2016-08-28 15:11] VITALS: BP 114/74
[2016-08-28 19:00] VITALS: BP 120/68
[2016-08-28] MEDS: SIMVASTATIN 20 MG TABLET PO SCH (21:06)
[2016-08-28 23:00] VITALS: BP 106/70
[2016-08-29] VITALS (16 sets, daily range): BP systolic 104–142; BP diastolic 67–93
[2016-08-29 04:30] LABS: BASO % 0 % (0-3); EOS % 0 % (0-3); HEMATOCRIT 35.1 % (39.0-53.0); HEMOGLOBIN 11.9 g/dL (13.0-17.5); LYMPH # 1.1 x10^3/uL (1.0-4.8); LYMPH % 24 % (24-48); MEAN CORPUSCULAR HEMOGLOBIN 32 pg (25-35); MEAN CORPUSCULAR HGB CONC 34 g/dL (31-37); MEAN CORPUSCULAR VOLUME 95 fL (79-100); MONO % 13 % (0-9); NEUT % 62 % (31-73); PLATELET COUNT 65 x10^3/uL (140-400); RED BLOOD COUNT 3.71 x10^6/uL (4.30-5.70); RED CELL DISTRIBUTION WIDTH 12.7 % (11.5-14.5); WHITE BLOOD COUNT 4.7 x10^3/uL (4.0-11.0)
[2016-08-29] MEDS ORDERED: LIDOCAINE 1% / SOD BICARB 8.4% 20 ML VIAL. IJ ONE ×2 (08:05→09:30)
[2016-08-29] MEDS: IV NORMAL SALINE 1000ML BAG 1,000 ML IV SCH (08:08)
[2016-08-29] MEDS ORDERED: FENTANYL PF 250 MCG/5 ML VIAL. IV ONE (09:30)
[2016-08-29] MEDS ORDERED: MIDAZOLAM HCL/PF 5 MG/5 ML VIAL IV ONE (09:30)
--- NOTE | 2016-08-29 09:38 | PDOC ---
MODERATE SEDATION ASSESSMENT RISKS/ALTERNATIVES Risks/Alternatives Risks and alternatives of this type of sedation and procedure discussed with: RISK/ALTERNATIVES: Patient H & P ON CHART H & P H & P on chart and reviewed for co-morbid conditions and appropriate labs. H&P ON CHART: Yes STATUS PREG STATUS ASSESSED: N/A MEDS/ALLERGIES REVIEWED Meds/Allergies Reviewed Medications and Allergies including time and route of recently administered narcotics and sedatives. MEDS/ALLERGIES REVIEWED: Yes ASA RATING ASA RATING: II AIRWAY ASSESSMENT Airway Assessment Airway patency, oral function limitations, presence of caps, crowns, dentures, partials, and ability to extend neck assessed. AIRWAY ASSESSMENT: Yes MALLAMPATI SCORE MALLAMPATI SCORE: II PRE-SEDATION ASSESSMENT PRE-SEDATION ASSESSMENT: Yes LEONILA CRUZ MD Aug 29, 2016 09:38
--- NOTE | 2016-08-29 09:41 | PDOC ---
Exam Manager Integrity Manager Integrity Luisa Application Design Engineer Application Design Engineer F Ndumbu Pre-Procedure Diagnosis Pre-Procedure Diagnosis Thrombocytopenia with epistaxix. Post-Procedure Diagnosis Post-Procedure Diagnosis Same Procedure Performed Procedure Performed CT guided bone marrow asp/bx Type of Anesthesia Type of Anesthesia Local + Mod sedation Estimated Blood Loss EBL: Trace Specimens Specimans 6 cc bone marrow aspirate + 1 11G core bx-----to heme-path Condition of Patient Condition of Patient No change. No apparent complication. Disposition Disposition From IR/CT return to [facility]. F/U with Dr Waller. Full report to follow. If clinically significant epistaxis persists, trans-microcather embolization could be considered. LEONILA CRUZ MD Aug 29, 2016 09:41
--- NOTE | 2016-08-29 09:48 | PDOC ---
Subjective: Subjective: Onc f/u- Likely ITP, epistaxis Pt with no further epistaxis. Frustrated because he wants to eat. No melena, hematochezia, oral bleeding. Objective: Vital Signs: Vital Signs Date Time Temp Pulse Resp B/P Pulse Ox O2 Delivery O2 Flow Rate FiO2 08/29/16 09:33 23 95 Nasal Cannula 2.0 08/29/16 09:30 84 08/29/16 07:00 98.4 115/67 98.4 Physical Exam: Extremities: No edema General: Alert, Oriented X3, Cooperative, No acute distress HEENT: Other (no further epistaxis. No ginigival bleeding.) Lungs: Other Psych/Mental Status: Mental status NL, Mood NL Skin: Other (no petechaie, bruising) Labs/Imaging: Abd u/S - No [facility] Iron, B12, folate, fT4, hepatitis testing WNL Plt dropping to 65, other labs stable. Assessment/Plan A/P: 1. Thrombocytopenia, likely ITP - Not low enough to cause clinical bleeding - Bmbx today to make sure no other etiology; will f/u as outpt - Counts not low enough to need tx or cause sx, generally started when plt < 30. 2. Epistaxis s/p nasal bulb- stopped - Seems to only have localized bleeding likely due to local factors, not plt count. No bleeding anywhere else. - ENT eval recommended as outpt. My office will call to set up f/u. Ok to DC from onc standpoint after his bx. JEFFRY ELKINS DO Aug 29, 2016 09:48
[2016-08-29] MEDS: FLUTICASONE 50MCG/NASAL SPRAY 16GM BOTTLE. NS SCH (10:52)
[2016-08-29] MEDS: ASPIRIN 81 MG TAB.CHEW PO SCH (10:52)
--- NOTE | 2016-08-29 11:48 | PDOC ---
PROGRESS NOTES Chief Complaint Chief Complaint 1. 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 EPISTAxis with indwelling R nostril drain placed by ER 3. Hx post op bleeding in left buttock from skin cancer local excision 4. DANIEL sec to GI loss 5.A cute diarrhea likely viral 6. HYPOTENSION fluid responsive History of Present Illness History of Present Illness Platelets 60s from 70s from 85 on admission Seems to have no active epistaxis - dried crusted blood on nostril Pt AGREEABLE TO SNU - PT recs SNU PALn: SW for SNU screenAwait heme onc rounds CBC daily WOF for more bleeding Vitals Vitals Vital Signs Date Time Temp Pulse Resp B/P Pulse Ox O2 Delivery O2 Flow Rate FiO2 08/29/16 10:45 65 129/79 96 Room Air 08/29/16 10:00 96.8 18 96.8 08/29/16 09:33 2.0 Physical Exam General: Alert, Oriented X3, Cooperative, No acute distress Heart: Regular rate Abdomen: Normal bowel sounds, Soft, No tenderness, No hepatosplenomegaly, No masses Extremities: No edema Skin: Other (no petechaie, bruising) Labs LABS Laboratory Tests Test 08/29/16 03:55 White Blood Count 4.7x10^3/uL (4.0-11.0) Red Blood Count 3.71x10^6/uL (4.30-5.70) Hemoglobin 11.9g/dL (13.0-17.5) Hematocrit 35.1% (39.0-53.0) Mean Corpuscular Volume 95fL (79-100) Mean Corpuscular Hemoglobin 32pg (25-35) Mean Corpuscular Hemoglobin Concent 34g/dL (31-37) Red Cell Distribution Width 12.7% (11.5-14.5) Platelet Count 65x10^3/uL (140-400) Neutrophils (%) (Auto) 62% (31-73) Lymphocytes (%) (Auto) 24% (24-48) Monocytes (%) (Auto) 13% (0-9) Eosinophils (%) (Auto) 0% (0-3) Basophils (%) (Auto) 0% (0-3) Neutrophils # (Auto) 2.9x10^3uL (1.8-7.7) Lymphocytes # (Auto) 1.1x10^3/uL (1.0-4.8) Monocytes # (Auto) 0.6x10^3/uL (0.0-1.1) Eosinophils # (Auto) 0.0x10^3/uL (0.0-0.7) Basophils # (Auto) 0.0x10^3/uL (0.0-0.2) Review of Systems Review of Systems weak, no soa, no cp, no abd pain Assessment and Plan Assessmemt and Plan Problems Medical Problems: (1) Acute kidney injury Status: Acute (2) DANIEL (acute kidney injury) Status: Acute (3) Epistaxis Status: Acute (4) Hypotension Status: Acute (5) Hypotension Status: Acute Problems: Comment Review of Relevant I have reviewed the following items marian (where applicable) has been applied. Labs Laboratory Tests Test 08/27/16 14:25 08/28/16 00:02 08/28/16 04:35 08/29/16 03:55 Fibrinogen 309mg/dL (200-440) Special Test - Miscellaneous See separate report Iron Level 43ug/dL (65-175) Total Iron Binding Capacity 277ug/dL (250-450) Iron Saturation 16% (15-34) Ferritin 433ng/mL (26-388) Folic Acid (LAB) 12.5ng/mL (>3.0) Thyroid Stimulating Hormone (TSH) 0.173uIU/mL (0.358-3.74) Hepatitis A IgM Antibody Negative (Negative) Hepatitis B Surface Antigen Negative (Negative) Hepatitis B Core IgM Antibody Negative (Negative) Hepatitis C Antibody <0.1s/co ratio (0.0-0.9) Urine Collection Type Unknown Urine Color Yellow Urine Clarity Clear Urine pH 5.5 Urine Specific [place] >=1.030 Urine Protein Negativemg/dL (NEG-TRACE) Urine Glucose (UA) Negativemg/dL (NEG) Urine Ketones (Stick) Negativemg/dL (NEG) Urine Blood Small (NEG) Urine Nitrite Negative (NEG) Urine Bilirubin Negative (NEG) Urine Urobilinogen Dipstick 0.2mg/dL (0.2 mg/dL) Urine Leukocyte Esterase Negative (NEG) Urine RBC Occ/HPF (0-2) Urine WBC 1-4/HPF (0-4) Urine Squamous Epithelial Cells Occ/LPF Urine Bacteria Few/HPF (0-FEW) Urine Hyaline Casts Few/HPF Urine Mucus Mod/LPF White Blood Count 5.5x10^3/uL (4.0-11.0) 4.7x10^3/uL (4.0-11.0) Red Blood Count 4.14x10^6/uL (4.30-5.70) 3.71x10^6/uL (4.30-5.70) Hemoglobin 13.2g/dL (13.0-17.5) 11.9g/dL (13.0-17.5) Hematocrit 39.2% (39.0-53.0) 35.1% (39.0-53.0) Mean Corpuscular Volume 95fL (79-100) 95fL (79-100) Mean Corpuscular Hemoglobin 32pg (25-35) 32pg (25-35) Mean Corpuscular Hemoglobin Concent 34g/dL (31-37) 34g/dL (31-37) Red Cell Distribution Width 13.0% (11.5-14.5) 12.7% (11.5-14.5) Platelet Count 75x10^3/uL (140-400) 65x10^3/uL (140-400) Neutrophils (%) (Auto) 72% (31-73) 62% (31-73) Lymphocytes (%) (Auto) 17% (24-48) 24% (24-48) Monocytes (%) (Auto) 11% (0-9) 13% (0-9) Eosinophils (%) (Auto) 0% (0-3) 0% (0-3) Basophils (%) (Auto) 0% (0-3) 0% (0-3) Neutrophils # (Auto) 3.9x10^3uL (1.8-7.7) 2.9x10^3uL (1.8-7.7) Lymphocytes # (Auto) 0.9x10^3/uL (1.0-4.8) 1.1x10^3/uL (1.0-4.8) Monocytes # (Auto) 0.6x10^3/uL (0.0-1.1) 0.6x10^3/uL (0.0-1.1) Eosinophils # (Auto) 0.0x10^3/uL (0.0-0.7) 0.0x10^3/uL (0.0-0.7) Basophils # (Auto) 0.0x10^3/uL (0.0-0.2) 0.0x10^3/uL (0.0-0.2) Sodium Level 140mmol/L (136-145) Potassium Level 4.0mmol/L (3.5-5.1) Chloride Level 105mmol/L (98-107) Carbon Dioxide Level 22mmol/L (21-32) Anion Gap 13 (6-14) Blood Urea Nitrogen 29mg/dL (8-26) Creatinine 0.9mg/dL (0.7-1.3) Estimated GFR (Cockcroft-Gault) 99.3 Glucose Level 109mg/dL (70-99) Calcium Level 8.2mg/dL (8.5-10.1) Vitamin B12 Level 701pg/mL (211-946) Free Thyroxine 1.07ng/dL (0.76-1.46) Laboratory Tests Test 08/29/16 03:55 White Blood Count 4.7x10^3/uL (4.0-11.0) Red Blood Count 3.71x10^6/uL (4.30-5.70) Hemoglobin 11.9g/dL (13.0-17.5) Hematocrit 35.1% (39.0-53.0) Mean Corpuscular Volume 95fL (79-100) Mean Corpuscular Hemoglobin 32pg (25-35) Mean Corpuscular Hemoglobin Concent 34g/dL (31-37) Red Cell Distribution Width 12.7% (11.5-14.5) Platelet Count 65x10^3/uL (140-400) Neutrophils (%) (Auto) 62% (31-73) Lymphocytes (%) (Auto) 24% (24-48) Monocytes (%) (Auto) 13% (0-9) Eosinophils (%) (Auto) 0% (0-3) Basophils (%) (Auto) 0% (0-3) Neutrophils # (Auto) 2.9x10^3uL (1.8-7.7) Lymphocytes # (Auto) 1.1x10^3/uL (1.0-4.8) Monocytes # (Auto) 0.6x10^3/uL (0.0-1.1) Eosinophils # (Auto) 0.0x10^3/uL (0.0-0.7) Basophils # (Auto) 0.0x10^3/uL (0.0-0.2) Medications Current Medications Oxymetazoline HCl 2 spray 2 spray 1X ONCE NS Last administered on 08/27/16 04 :12; Start 08/27/16 at 03:30; Stop 08/27/16 at 03:31; Status DC Sodium Chloride 500 ml @ 500 mls/hr 1X ONCE IV Last administered on 04:12; Start 08/27/16 at 04:00; Stop 08/27/16 at 04:59; Status DC Sodium Chloride 500 ml @ 500 mls/hr 1X ONCE IV Last administered on 05:00; Start 08/27/16 at 05:00; Stop 08/27/16 at 05:59; Status DC Sodium Chloride (Iv Sodium Chloride 0.9% 500ml Bag) 500 ml @ 500 mls/hr 1X ONCE IV Last administered on 08/27/16 06:04; Start 08/27/16 at 06:15; Stop at 07:14; Status DC Ondansetron HCl (Zofran) 4 mg PRN Q8HRS PRN IV NAUSEA/VOMITING; Start 08/27/16 at 06:00; Stop 08/27/16 at 11:26; Status DC Morphine Sulfate 2 mg PRN Q2HR PRN IV SEVERE PAIN; Start 08/27/16 at 06:00; Stop 08/28/16 at 05:59; Status DC Ondansetron HCl (Zofran) 4 mg PRN Q6HRS PRN IV NAUSEA/VOMITING; Start 08/27/16 at 11:25 Aspirin (Children'S Aspirin) 81 mg [id number] PO Last administered on 10:52; Start 08/27/16 at 12:00 Fluticasone Propionate (Flonase) 2 spray DAILY NS Last administered on 10:52; Start 08/27/16 at 12:00 Acetaminophen/ Hydrocodone Bitart (Lortab 7.5-325/ 15ml Oral Solution) 15 ml TID PRN PO pain Last administered on 08/28/16 08:42; Start 08/27/16 at 11:30 Simvastatin 20 mg 20 mg HS PO Last administered on 08/28/16 21:06; Start 08/27 at 21:00 Sodium Chloride (Iv Sodium Chloride 0.9% 1000ml Bag) 1,000 ml @ 75 mls/hr [id number] IV Last administered on 08/29/16 08:08; Start 08/27/16 at 11:30 Lidocaine/Sodium Bicarbonate (Buffered Lidocaine 1%) 20 ml STK-MED ONCE IJ ; Start 08/29/16 at 08:05; Stop 08/29/16 at 08:06; Status DC Lidocaine/Sodium Bicarbonate (Buffered Lidocaine 1%) 3 ml 1X ONCE IJ Last administered on 08/29/16 09:32; Start 08/29/16 at 09:30; Stop 08/29/16 at 09:32 ; Status DC Midazolam HCl (Versed) 1.5 mg 1X ONCE IV Last administered on 08/29/16 09:33 ; Start 08/29/16 at 09:30; Stop 08/29/16 at 09:32; Status DC Fentanyl Citrate (Fentanyl 5ml Vial) 100 mcg 1X ONCE IV Last administered on 09:33; Start 08/29/16 at 09:30; Stop 08/29/16 at 09:32; Status DC Active Scripts Active Keflex (Cephalexin) 500 Mg Capsule 1 Cap PO BID Reported Flonase (Fluticasone Propionate) 16 Gm [place].susp 2 [place] NS DAILY Simvastatin 20 Mg Tablet 20 Mg PO HS Hermelinda Chewable (Aspirin) 81 Mg Tab.chew 81 Mg PO Lisinopril 10 Mg Tablet 10 Mg PO Hydrocodone-Apap 7.5-325/15 Soln (Hydrocodone Bit/Acetaminophen) 15 Ml Solution 15 Ml PO Rapaflo (Silodosin) 8 Mg Capsule 8 Mg PO Vitals/I & O Vital Sign - Last 24 Hours 08/28/16 08/28/16 08/28/16 08/28/16 15:11 19:00 20:00 23:00 Temp 99.9 99.3 99.2 99.9 99.3 99.2 Pulse 89 92 93 Resp B/P 114/74 120/68 106/70 Pulse Ox 93 95 95 O2 Delivery Room Air Room Air 08/29/16 08/29/16 08/29/16 08/29/16 03:00 07:00 07:55 09:19 Temp 99.4 98.4 99.4 98.4 Pulse 85 71 98 Resp B/P 112/69 115/67 Pulse Ox 96 90 95 O2 Delivery Room Air Room Air Room Air Nasal Cannula O2 Flow Rate 2.0 08/29/16 08/29/16 08/29/16 08/29/16 09:22 09:26 09:30 09:33 Pulse 90 88 84 Resp Pulse Ox 92 93 95 95 O2 Delivery Nasal Cannula Nasal Cannula Nasal Cannula Nasal Cannula O2 Flow Rate 2.0 2.0 2.0 2.0 08/29/16 08/29/16 08/29/16 08/29/16 10:00 10:15 10:30 10:45 Temp 96.8 96.8 Pulse 64 76 82 65 Resp 18 B/P 135/86 142/89 135/91 129/79 Pulse Ox 94 94 93 96 O2 Delivery Room Air Room Air Room Air Room Air Intake and Output 08/28/16 08/28/16 08/29/16 15:00 23:00 07:00 Intake Total 780 ml Output Total 200 ml 750 ml 300 ml Balance -200 ml 30 ml -300 ml GABRIELA THORNTON MD Aug 29, 2016 11:48
--- NOTE | 2016-08-29 16:25 | RAD ---
CT-guided power drill assisted bone marrow aspiration and biopsy Indication: 76-year-old male with thrombocytopenia and epistaxis. CT-guided bone marrow aspirate/biopsy has been requested by hematology-oncology. Anesthesia: 11 minutes moderate sedation was provided utilizing a total of 1.5 mg Versed and 100 mcg fentanyl, IV. The patient was appropriately monitored by a qualified independent observer throughout the time of moderate sedation. Procedure: Informed consent was obtained from the patient. He was placed prone on the CT scanner. Preliminary noncontrast CT images were obtained through pelvis. A left posterior skin site suitable for CT-guided bone marrow aspirate/biopsy from posterior left iliac bone was selected and marked. That area was prepped and draped in the usual sterile fashion. Conscious sedation was provided with IV Versed and fentanyl. Using aseptic technique, local anesthesia, and CT guidance, and the [employer] power dumpcart driver, successful percutaneous entry was achieved through posterior cortex of left iliac bone. Approximately 5 cc of bone marrow was promptly aspirated, and was submitted to hematology personnel in the CT suite. Using CT guidance, the [employer] power dumpcart driver was then utilized to obtain a single, 11-gauge core biopsy sample from marrow cavity of left iliac bone. The biopsy sample was submitted to pathology in formalin. A sterile dressing was applied over the biopsy skin puncture site. Patient tolerated the procedure well without apparent complication. Impression: Successful, uneventful CT-guided bone marrow aspirate and biopsy, utilizing the [employer] power dumpcart driver biopsy system, as described. PQRS compliance statement: One or more of the following individualized dose reduction techniques were utilized for this CT procedure: 1. Automated exposure control. 2. Adjustment of MA and/or KV according to patient size. 3. Iterative reconstruction technique.
[2016-08-29] MEDS: HYDROCODONE/APAP 7.5/325MG ORAL 15 ML SOLUTION. PO PRN (17:07)
[2016-08-29] MEDS: SIMVASTATIN 20 MG TABLET PO SCH (20:20)
[2016-08-30 04:54] LABS: BASO % 0 % (0-3); EOS % 0 % (0-3); HEMATOCRIT 33.9 % (39.0-53.0); HEMOGLOBIN 11.7 g/dL (13.0-17.5); LYMPH # 1.2 x10^3/uL (1.0-4.8); LYMPH % 26 % (24-48); MEAN CORPUSCULAR HEMOGLOBIN 32 pg (25-35); MEAN CORPUSCULAR HGB CONC 35 g/dL (31-37); MEAN CORPUSCULAR VOLUME 93 fL (79-100); MONO % 11 % (0-9); NEUT % 63 % (31-73); PLATELET COUNT 56 x10^3/uL (140-400); RED BLOOD COUNT 3.63 x10^6/uL (4.30-5.70); RED CELL DISTRIBUTION WIDTH 12.8 % (11.5-14.5); WHITE BLOOD COUNT 4.5 x10^3/uL (4.0-11.0)
[2016-08-30] MEDS: IV NORMAL SALINE 1000ML BAG 1,000 ML IV SCH (06:10)
[2016-08-30 07:09] VITALS: BP 136/89
[2016-08-30] MEDS: ASPIRIN 81 MG TAB.CHEW PO SCH (09:16)
[2016-08-30] MEDS: FLUTICASONE 50MCG/NASAL SPRAY 16GM BOTTLE. NS SCH (09:16)
--- NOTE | 2016-08-30 10:58 | PDOC3 ---
Discharge Summary Visit Information Date of Admission: Aug 27, 2016 Date of Discharge: Aug 30, 2016 Admitting Diagnosis Comment: 1. 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 EPISTAxis with indwelling R nostril drain placed by ER 3. Hx post op bleeding in left buttock from skin cancer local excision 4. DANIEL sec to GI loss 5.A cute diarrhea likely viral 6. HYPOTENSION fluid responsive Final Diagnosis Problems Medical Problems: (1) Acute kidney injury Status: Acute (2) DANIEL (acute kidney injury) Status: Acute (3) Epistaxis Status: Acute (4) Hypotension Status: Acute (5) Hypotension Status: Acute (6) Thrombocytopenia Status: Acute Brief Hospital Course Allergies Allergies Coded Allergies Type Severity Reaction Last Updated Verified No Known Drug Allergies 08/10/13 No Vital Signs Vital Signs Date Time Temp Pulse Resp B/P Pulse Ox O2 Delivery O2 Flow Rate FiO2 08/30/16 09:16 Room Air 08/30/16 07:09 98.5 70 18 136/89 90 98.5 08/29/16 20:00 2.0 Lab Results Laboratory Tests Test 08/29/16 03:55 08/30/16 04:07 White Blood Count 4.7x10^3/uL (4.0-11.0) 4.5x10^3/uL (4.0-11.0) Red Blood Count 3.71x10^6/uL (4.30-5.70) 3.63x10^6/uL (4.30-5.70) Hemoglobin 11.9g/dL (13.0-17.5) 11.7g/dL (13.0-17.5) Hematocrit 35.1% (39.0-53.0) 33.9% (39.0-53.0) Mean Corpuscular Volume 95fL (79-100) 93fL (79-100) Mean Corpuscular Hemoglobin 32pg (25-35) 32pg (25-35) Mean Corpuscular Hemoglobin Concent 34g/dL (31-37) 35g/dL (31-37) Red Cell Distribution Width 12.7% (11.5-14.5) 12.8% (11.5-14.5) Platelet Count 65x10^3/uL (140-400) 56x10^3/uL (140-400) Neutrophils (%) (Auto) 62% (31-73) 63% (31-73) Lymphocytes (%) (Auto) 24% (24-48) 26% (24-48) Monocytes (%) (Auto) 13% (0-9) 11% (0-9) Eosinophils (%) (Auto) 0% (0-3) 0% (0-3) Basophils (%) (Auto) 0% (0-3) 0% (0-3) Neutrophils # (Auto) 2.9x10^3uL (1.8-7.7) 2.9x10^3uL (1.8-7.7) Lymphocytes # (Auto) 1.1x10^3/uL (1.0-4.8) 1.2x10^3/uL (1.0-4.8) Monocytes # (Auto) 0.6x10^3/uL (0.0-1.1) 0.5x10^3/uL (0.0-1.1) Eosinophils # (Auto) 0.0x10^3/uL (0.0-0.7) 0.0x10^3/uL (0.0-0.7) Basophils # (Auto) 0.0x10^3/uL (0.0-0.2) 0.0x10^3/uL (0.0-0.2) Laboratory Tests Test 08/30/16 04:07 White Blood Count 4.5x10^3/uL (4.0-11.0) Red Blood Count 3.63x10^6/uL (4.30-5.70) Hemoglobin 11.7g/dL (13.0-17.5) Hematocrit 33.9% (39.0-53.0) Mean Corpuscular Volume 93fL (79-100) Mean Corpuscular Hemoglobin 32pg (25-35) Mean Corpuscular Hemoglobin Concent 35g/dL (31-37) Red Cell Distribution Width 12.8% (11.5-14.5) Platelet Count 56x10^3/uL (140-400) Neutrophils (%) (Auto) 63% (31-73) Lymphocytes (%) (Auto) 26% (24-48) Monocytes (%) (Auto) 11% (0-9) Eosinophils (%) (Auto) 0% (0-3) Basophils (%) (Auto) 0% (0-3) Neutrophils # (Auto) 2.9x10^3uL (1.8-7.7) Lymphocytes # (Auto) 1.2x10^3/uL (1.0-4.8) Monocytes # (Auto) 0.5x10^3/uL (0.0-1.1) Eosinophils # (Auto) 0.0x10^3/uL (0.0-0.7) Basophils # (Auto) 0.0x10^3/uL (0.0-0.2) Brief Hospital Course Mr. Hall is a 76 old Aa male admitted for profuse epistaxis needing nasal drain.balloon inserted at ER, Platelets were 80s, Heme onc consulted, BOne marrow biopsy done, To ff up heme onc in 2 weeks time, no tx for low platelets given here while his stay. Claims low platelets not that low to cause the epsiatxis, Pt did have bleeding in his buttock last admission last yr when he had wound sx. NEeds SNU, HCR accepted On ASA at home, i have stopped Pt seen and examined Dw RN, SW and pt Copnsults: heme onc Proc; BM biopsy Discharge Information Condition at Discharge: Improved, Stable Disposition/Orders: Other (snf) Scheduled Cephalexin (Keflex) 1 CAP PO BID Fluticasone Propionate (Flonase) 2 SPRAY NS DAILY (Reported) Simvastatin (Simvastatin) 20 MG PO HS (Reported) Miscellaneous Medications Aspirin (Hermelinda Chewable) 81 MG PO (Reported) Hydrocodone Bit/Acetaminophen (Hydrocodone-Apap 7.5-325/15 Soln ) 15 ML PO ( Reported) Lisinopril (Lisinopril) 10 MG PO (Reported) Silodosin (Rapaflo) 8 MG PO (Reported) GABRIELA THORNTON MD Aug 30, 2016 10:58
[2016-08-30 11:04] VITALS: BP 135/95
== END 2016-08-30 14:40 | DRG 813 ==
LOC: ER 03:06 → ED HOLD 09:11 → 5 SOUTH 09:59
PROVIDERS: ADMIT Internal Medicine; ATTEND Internal Medicine
PROC: 07DR3ZX Extraction of Iliac Bone Marrow, Percutaneous Approach, Diagnostic (ICD-10-PCS; principal; 2016-08-29)
DX: D69.3 Immune thrombocytopenic purpura (principal); N17.9 Acute kidney failure, unspecified; D72.819 Decreased white blood cell count, unspecified; E78.00 Pure hypercholesterolemia, unspecified; E78.5 Hyperlipidemia, unspecified; I10 Essential (primary) hypertension; Z79.82 Long term (current) use of aspirin; Z85.828 Personal history of other malignant neoplasm of skin; A08.4 Viral intestinal infection, unspecified
CPT/HCPCS: 36415; 38221; 70450; 76700; 77012; 80048; 80074; 81001; 82607; 82728; 82746; 83540; 83550; 84439; 84443; 85027; 85384; 85610; 85730; 86850; 86900; 86901; 88184; 88185; 88237; 96360; G0364; G0378; J2250; J3010; J7030; J7040; 97535; 99285-25